=== PATIENT | male | born 2000 | race African-American/Black ===

== ENCOUNTER 2019-01-24 01:10 | Emergency (ER) | payer SELFPAY ==
--- NOTE | 2019-01-24 01:30 | EDM.PDOC ---
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 Pt played basket ball, went out for dinner with is team when the symptoms stared and are still present. No N /V/D no dizziness no trauma, no SOB, no pleuritic P or any other acute med issues. BP 156/87 Pulse 100 RR 18 Pulse ox 99% on RA Temp 36.9 Onset Date: 01/21/19 Onset Time: 09:00 Duration: Day(s):, Intermittent Location: Reports: Chest Quality: Reports: Other (feeling "worms moving in his chest') Improves with: Reports: None Worsens with: Reports: None Context: Reports: Other Associated Symptoms: Reports: No Other Symptoms - Related Data Allergies Allergy/AdvReac Type Severity Reaction Status Date / Time No Known Allergies Allergy Verified 01/24/19 01:20 Home Meds: Home Meds NK [No Known Home Meds] 01/24/19 [History] ED ROS GENERAL - Review of Systems Review Of Systems: See Below Constitutional: Reports: No Symptoms HEENT: Reports: No Symptoms Respiratory: Reports: No Symptoms Cardiovascular: Reports: Other ("worms moving in his chest") Endocrine: Reports: No Symptoms GI/Abdominal: Reports: No Symptoms : Reports: No Symptoms Musculoskeletal: Reports: No Symptoms Skin: Reports: No Symptoms Neurological: Reports: No Symptoms Psychiatric: Reports: No Symptoms Hematologic/Lymphatic: Reports: No Symptoms Immunologic: Reports: No Symptoms ED EXAM, GENERAL - Physical Exam Exam: See Below Exam Limited By: No Limitations General Appearance: Alert, WD/WN, Mild Distress Eye Exam: Bilateral Eye: Normal Inspection Ears: Normal External Exam Ear Exam: Bilateral Ear: Auricle Normal Nose: Normal Inspection, Normal Mucosa, No Blood Throat/Mouth: Normal Inspection, Normal Lips, Normal Teeth, Normal Gums, Normal Voice, No Airway Compromise Head: Atraumatic, Normocephalic Neck: Normal Inspection, Supple, Non-Tender, Full Range of Motion Respiratory/Chest: No Respiratory Distress, Lungs Clear, Normal Breath Sounds, Chest Non-Tender Cardiovascular: Normal Peripheral Pulses, Regular Rate, Rhythm, No Edema, No Gallop, No Rub Peripheral Pulses: 1+: Brachial (L) GI/Abdominal: Normal Bowel Sounds, Soft, Non-Tender, No Organomegaly, No Abnormal Bruit, No Mass, Pelvis Stable (Male) Exam: No Hernia Rectal (Males) Exam: Deferred Back Exam: Normal Inspection, Full Range of Motion Extremities: Normal Inspection, Normal Range of Motion, Non-Tender, Normal Capillary Refill Neurological: Alert, Oriented, CN II-XII Intact, Normal Cognition, Normal Gait, No Motor/Sensory Deficits Psychiatric: Normal Affect, Anxious Skin Exam: Warm, Dry, Intact, Normal Color, No Rash Lymphatic: No Adenopathy Course - Vital Signs Text/Narrative:: 18 y.o.b 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 Pt played basket ball, went out for dinner with is team when the symptoms stared and are still present. No N /V/D no dizziness no trauma, no SOB, no pleuritic P or any other acute med issues. BP 156/87 Pulse 100 RR 18 Pulse ox 99% on RA Temp 36.9 PE: WNWD B male C/O left sided Chest discomfort, anxiety Labs: K was 3.2 Mg was 1.7, UDS was pos for marijuana Impression: Anxiety, Hypokalemia, low Magnesium, post UDS Tx: Potassium 40MQ Reexam: Improved Plan: D/C with instruction Last Recorded V/S: Last Vital Signs Temp 36.9 C 01/24/19 01:10 Pulse 100 01/24/19 01:10 Resp 18 01/24/19 01:10 BP 156/87 H 01/24/19 01:10 Pulse Ox 99 01/24/19 01:10 - Orders/Labs/Meds Labs: Laboratory Tests 01/24/19 01/24/19 01/24/19 Range/Units 01:38 01:40 01:40 WBC 9.1 (4.5-12.0) X10-3/uL RBC 4.81 (4.30-5.75) x10(6)uL Hgb 14.2 (13.5-17.8) g/dL Hct 42.4 (30.0-51.3) % MCV 88.3 (80-96) fL MCH 29.6 (27.7-33.6) pg MCHC 33.5 (32.2-35.4) g/dL RDW 13.1 (11.5-15.5) % Plt Count 223 (125-369) X10(3)uL MPV 8.6 (7.4-10.4) fL Neut % (Auto) 68.3 (46-82) % Lymph % (Auto) 23.9 (13-37) % [place] % (Auto) 5.0 (4-12) % Eos % (Auto) 1 (1.0-5.0) % Baso % (Auto) 2 (0-2) % Neut # (Auto) 6.1 (1.6-8.3) # Lymph # (Auto) 2.2 (0.6-5.0) # [place] # (Auto) 0.5 (0.0-1.3) # Eos # (Auto) 0.1 (0.0-0.8) # Baso # (Auto) 0.2 (0.0-0.2) # Sodium 140 (135-145) mmol/L Potassium 3.2 L (3.5-5.3) mmol/L Chloride 100 (100-110) mmol/L Carbon Dioxide 28 (21-32) mmol/L BUN 13 (7-18) mg/dL Creatinine 1.2 (0.70-1.30) mg/dL Est Cr Clr Drug Dosing 104.81 mL/min Estimated GFR (MDRD) > 60 (>60) BUN/Creatinine Ratio 10.8 (9-20) Glucose 124 H (80-116) mg/dL Calcium 9.0 (8.2-10.1) mg/dL Magnesium (1.8-2.5) mg/dL Total Bilirubin 0.4 (0.1-1.2) mg/dL Direct Bilirubin 0.09 L (0.10-0.20) mg/dL AST 24 (5-25) IU/L ALT 21 (12-36) U/L Alkaline Phosphatase 60 (56-112) IU/L Total Protein 7.5 (6.0-8.0) g/dL Albumin 4.3 (3.2-4.5) g/dL Amylase (25-115) U/L Urine Opiates Screen Negative (NEGATIVE) Ur Oxycodone Screen Negative (NEGATIVE) Ur Propoxyphene Screen Negative (NEGATIVE) Ur Barbituates Screen Negative (NEGATIVE) Ur Tricyclics Screen Negative (NEGATIVE) Ur Phencyclidine Scrn Negative (NEGATIVE) Ur Amphetamine Screen Negative (NEGATIVE) Urine MDMA Screen Negative (NEGATIVE) U Benzodiazepines Scrn Negative (NEGATIVE) U Cocaine Metab Screen Negative (NEGATIVE) U Marijuana (THC) Screen Positive H (NEGATIVE) Ethyl Alcohol (<0.03) % 01/24/19 01/24/19 01/24/19 Range/Units 01:40 01:40 01:40 WBC (4.5-12.0) X10-3/uL RBC (4.30-5.75) x10(6)uL Hgb (13.5-17.8) g/dL Hct (30.0-51.3) % MCV (80-96) fL MCH (27.7-33.6) pg MCHC (32.2-35.4) g/dL RDW (11.5-15.5) % Plt Count (125-369) X10(3)uL MPV (7.4-10.4) fL Neut % (Auto) (46-82) % Lymph % (Auto) (13-37) % [place] % (Auto) (4-12) % Eos % (Auto) (1.0-5.0) % Baso % (Auto) (0-2) % Neut # (Auto) (1.6-8.3) # Lymph # (Auto) (0.6-5.0) # [place] # (Auto) (0.0-1.3) # Eos # (Auto) (0.0-0.8) # Baso # (Auto) (0.0-0.2) # Sodium (135-145) mmol/L Potassium (3.5-5.3) mmol/L Chloride (100-110) mmol/L Carbon Dioxide (21-32) mmol/L BUN (7-18) mg/dL Creatinine (0.70-1.30) mg/dL Est Cr Clr Drug Dosing mL/min Estimated GFR (MDRD) (>60) BUN/Creatinine Ratio (9-20) Glucose (80-116) mg/dL Calcium (8.2-10.1) mg/dL Magnesium 1.7 L (1.8-2.5) mg/dL Total Bilirubin (0.1-1.2) mg/dL Direct Bilirubin (0.10-0.20) mg/dL AST (5-25) IU/L ALT (12-36) U/L Alkaline Phosphatase (56-112) IU/L Total Protein (6.0-8.0) g/dL Albumin (3.2-4.5) g/dL Amylase 76 (25-115) U/L Urine Opiates Screen (NEGATIVE) Ur Oxycodone Screen (NEGATIVE) Ur Propoxyphene Screen (NEGATIVE) Ur Barbituates Screen (NEGATIVE) Ur Tricyclics Screen (NEGATIVE) Ur Phencyclidine Scrn (NEGATIVE) Ur Amphetamine Screen (NEGATIVE) Urine MDMA Screen (NEGATIVE) U Benzodiazepines Scrn (NEGATIVE) U Cocaine Metab Screen (NEGATIVE) U Marijuana (THC) Screen (NEGATIVE) Ethyl Alcohol < 0.03 (<0.03) % Meds: Medications Discontinued Medications Generic Name Dose Route Start Last Admin Trade Name Freq PRN Reason Stop Dose Admin Magnesium Chloride 64 mg 01/24/19 02:39 01/24/19 02:47 Mag-64 PO 01/24/19 02:40 64 mg ONETIME STA Administration Potassium Chloride 40 meq 01/24/19 02:19 01/24/19 02:29 Klor-Con M20 PO 01/24/19 02:20 40 meq ONETIME ONE Administration Departure - Departure Time of Disposition: 02:42 Disposition: Home, Self-Care 01 Condition: Good Clinical Impression: Hypokalemia, Hypomagnesemia, Marijuana use - Discharge Information Instructions: Hypomagnesemia, Hypokalemia Referrals: PCP,None [Primary Care Provider] - Forms: ED Department Discharge Additional Instructions: Please quit Marijuana use, please F/U with f/u with your PMD a.s.a.p to further evaluate you low magnesium and potassium level. Please come back if your symptoms get worse acutely.
[2019-01-24] MEDS ORDERED: Potassium Chloride 20 MEQ Tab.ER PO ONE (02:19)
[2019-01-24] MEDS ORDERED: Magnesium Chloride 64 MG Tab.ER PO STA (02:39)
== END 2019-01-24 02:48 | disposition home or self-care (01) ==
LOC: FB.ED 01:10
DX: F41.9 Anxiety disorder, unspecified (principal); E87.6 Hypokalemia; E83.42 Hypomagnesemia; F12.90 Cannabis use, unspecified, uncomplicated
CPT/HCPCS: 36415; 80048; 80076; 80305; 82150; 83735; 85025; 99283; A9270; G0480